=== PATIENT | male | born 2000 | race Caucasian/White ===

== ENCOUNTER 2021-10-16 01:29 | Emergency (ER) | payer OTHER ==
[2021-10-16] MEDS ORDERED: LIDOCAINE 1% INJ 10MG/ML (5 ML VIAL-PF) SQ STA (05:32)
--- NOTE | 2021-10-16 05:43 | XR ---
EXAM: XR Right Tibia and Fibula, 2 Views CLINICAL HISTORY: ITS.REASON XR Reason: possible foreign body TECHNIQUE: Frontal and lateral views of the right tibia and fibula. COMPARISON: None FINDINGS: Bones/joints: No displaced fracture or dislocation identified. Joint space is maintained. No bony lesion. Soft tissues: Soft tissue swelling. Soft tissue wound along the medial distal right lower leg. No radiopaque foreign body identified. IMPRESSION: 1. No displaced fracture or dislocation identified. 2. Soft tissue swelling. Soft tissue wound along the medial distal right lower leg. No radiopaque foreign body identified.
[2021-10-16] MEDS ORDERED: MORPHINE SULFATE 4 MG/ML SYRINGE IV STA (06:16)
--- NOTE | 2021-10-16 07:20 | ED ---
Wound/Laceration HPI - General Chief Complaint: Wound/Laceration Stated Complaint: Rt Leg Laceration Time Seen by Provider: 10/16/21 03:21 Source: patient Mode of arrival: ambulatory Limitations: no limitations - History of Present Illness Initial Comments: This patient is 21-year-old man who presents with laceration to the right leg. Patient states that he had fallen on an embankment. He does note that there was a lot of contamination. -: hour(s) Extremity Location: Right: Lower Leg Place: outdoors Context: accidental Associated Symptoms: suspect foreign body present - Related Data Previous Rx's Medication Instructions Recorded Cephalexin [Keflex] 500 mg PO Q6HR #28 cap 10/16/21 Allergies Allergy/AdvReac Type Severity Reaction Status Date / Time No Known Allergies Allergy Verified 10/16/21 01:45 Review of Systems ROS Statement: Those systems with pertinent positive or pertinent negative responses have been documented in the HPI. ROS Other: All systems not noted in ROS Statement are negative. Constitutional: Denies: fever Respiratory: Denies: dyspnea Cardiovascular: Denies: chest pain Gastrointestinal: Denies: abdominal pain Musculoskeletal: Denies: back pain Skin: Reports: as per HPI, other (Leg laceration) Hematological/Lymphatic: Denies: easy bleeding Past Medical History Past Medical History: No Reported History History of Any Multi-Drug Resistant Organisms: None Reported Past Surgical History: No Surgical Hx Reported Past Psychological History: No Psychological Hx Reported Smoking Status: Never smoker Past Alcohol Use History: None Reported Past Drug Use History: None Reported General Exam Limitations: no limitations General appearance: alert, in no apparent distress Neurological exam: Present: alert. Absent: motor sensory deficit Skin exam: Present: warm, dry, normal color, other (There is an approximately 6 cm laceration to the lower portion of the right leg. There is gross contamination with dirt and organic material) Course Vital Signs 10/16/21 10/16/21 01:43 07:37 Temperature 98.8 F 98.6 F Pulse Rate 102 H 88 Respiratory 20 18 Rate Blood Pressure 136/74 124/78 O2 Sat by Pulse 98 98 Oximetry Procedures - Laceration Laceration #1 Consent Obtained: verbal consent Indication: laceration Site: lower extremity Size (cm): 6 Depth: involves muscle layer Anesthetic Used: lidocaine 1% Anesthesia Technique: local infiltration Pre-repair: wound explored, irrigated extensively Size of Sutures: 3-0 Number of Sutures: 6 Technique: simple, interrupted Patient Tolerated Procedure: well, no complications Additional Comments: Given the amount of contamination, I did perform a thorough irrigation and also debridement. X-ray was obtained which did not show any obvious retained foreign body. I did place a [place] drain to facilitate drainage should any infection begin to develop. Medical Decision Making - Medical Decision Making Patient is 21-year-old man with lower leg laceration with gross contamination. I did perform copious irrigation and debridement. Wound is closed, see the procedure note. Discussed appropriate wound care including drain and suture removal. Disposition Clinical Impression: Laceration Disposition: HOME SELF-CARE Condition: Good Instructions (If sedation given, give patient instructions): Care For Your Stitches (DC), Laceration (DC) Prescriptions: Cephalexin [Keflex] 500 mg PO Q6HR #28 cap Is patient prescribed a controlled substance at d/c from ED?: No Referrals: None,Stated [Primary Care Provider] - 1-2 days
[2021-10-16 07:38] VITALS: BP 124/78; PULSE 88; RESP 18; TEMP 98.6
== END 2021-10-16 07:38 | disposition home or self-care (01) ==
LOC: EC 01:29
DX: S81.811A Laceration without foreign body, right lower leg, initial encounter (principal); W17.81XA Fall down embankment (hill), initial encounter
CPT/HCPCS: 73590; 12002; 99283; 96374; 96375; J2270; J0690; J2001